=== PATIENT | female | born 1955 | race Caucasian/White ===

== ENCOUNTER → 2016-07-22 | Outpatient (CLI) | payer BC, OTHER | END | disposition home or self-care (01) | LOC: CFH 14:22 | PROVIDERS: ATTEND Internal Medicine Nephrology | DX: I12.9 Hypertensive chronic kidney disease with stage 1 through stage 4 chronic kidney disease, or unspecified chronic kidney disease (principal); N18.3 Chronic kidney disease, stage 3 (moderate) | CPT/HCPCS: 76770 ==

== ENCOUNTER 2020-08-15 08:27 | Inpatient (IN) | payer BC, MEDICARE ==
[~2020-08-15] VITALS: Ht 167.6 cm; Wt 77.9 kg
[~2020-08-15 08:27] MED LIST: BACITRACIN 50,000 UNIT ONE; BUPIVACAINE/PF 0.5% ONE; EPINEPHRINE 1 MG/ML, 1ML ONE
[2020-08-15 09:34] VITALS: BP 150/92
[2020-08-15] MEDS ORDERED: LEVO75TA5 PO (09:42)
[2020-08-15] MEDS ORDERED: LISI-167 PO (09:42)
[2020-08-15] MEDS ORDERED: CHLORHEXIDINE 15 ML UDC ONE (09:54)
[2020-08-15] MEDS ORDERED: LACTATED RINGERS 1,000 ML IV SCH (10:00)
[2020-08-15] MEDS ORDERED: CHLORHEXIDINE 15 ML UDC PO ONE (10:00)
[2020-08-15] MEDS ORDERED: PLEASE ENTER ALLERGIES MC SCH (10:30)
[2020-08-15] MEDS ORDERED: FENTANYL PF 100 MCG/2ML ONE ×6 (10:34→14:31)
[2020-08-15] MEDS ORDERED: MIDAZOLAM 1 MG/ML, 2ML ONE (10:34)
[2020-08-15] MEDS ORDERED: CEFAZOLIN 1,000 MG ONE (10:36)
[2020-08-15] MEDS ORDERED: ROCURONIUM 10MG/ML,5ML ONE (10:36)
[2020-08-15] MEDS ORDERED: PROPOFOL 10 MG/ML, 20ML ONE (10:37)
[2020-08-15] MEDS ORDERED: PROPOFOL 100 ML ONE (10:37)
[2020-08-15] MEDS ORDERED: GLYCOPYRROLATE 0.2MG/1ML, 5ML ONE (10:37)
[2020-08-15] MEDS ORDERED: NEOSTIGMINE 1 MG/ML, 10ML ONE (10:37)
[2020-08-15] MEDS ORDERED: SUCCINYLCHOLINE 20 MG/ML, 10ML ONE (10:37)
[2020-08-15] MEDS ORDERED: ONDANSETRON 2MG/ML, 2ML ONE (10:37)
[2020-08-15] MEDS ORDERED: DEXAMETHASONE 4 MG/ML, 1ML ONE (10:37)
[2020-08-15] MEDS ORDERED: PROMETHAZINE 25 MG/ML, 1ML IVPush PRN (12:30)
[2020-08-15] MEDS ORDERED: HYDROmorphone 1 MG/ML, 1ML INJ IVPush PRN (12:30)
[2020-08-15] MEDS ORDERED: morphine SULFATE 10 MG/ML, 1ML IVPush PRN ×2 (12:30→14:30)
[2020-08-15] MEDS ORDERED: OXYcodone 5 MG/5 ML ORAL.SOL UDC PO PRN (12:30)
[2020-08-15] MEDS ORDERED: ACETAMINOPHEN 325 MG TABLET PO PRN (12:30)
[2020-08-15] MEDS ORDERED: MEPERIDINE/PF 25MG/0.5ML IVPush PRN (12:30)
[2020-08-15] MEDS ORDERED: HALOPERIDOL 5 MG/ML IV PRN (12:30)
[2020-08-15] MEDS ORDERED: LABETALOL 5MG/ML, 20ML IV PRN (12:30)
[2020-08-15] MEDS ORDERED: hydrALAzine 20 MG/ML, 1ML IV PRN (12:30)
[2020-08-15] MEDS: FENTANYL PF 100 MCG/2ML IV PRN ×2 (14:20→14:32)
[2020-08-15] MEDS ORDERED: METHOCARBAMOL 750 MG TABLET PO PRN (14:30)
[2020-08-15] MEDS ORDERED: DIPHENHYDRAMINE 50 MG/ML, 1ML IM PRN (14:30)
[2020-08-15] MEDS ORDERED: PHARMACY MAY ADJ FOR RENAL FX MC PRN (14:30)
[2020-08-15] MEDS ORDERED: ONDANSETRON 2MG/ML, 2ML IVPush PRN (14:30)
[2020-08-15] MEDS ORDERED: DIPHENHYDRAMINE 50 MG CAPSULE PO PRN (14:30)
[2020-08-15] MEDS ORDERED: MAGNESIUM HYDROXIDE 8%, 30ML UDC PO PRN (14:30)
[2020-08-15] MEDS ORDERED: SENNA/DOCUSATE TABLET PO PRN (14:30)
[2020-08-15] MEDS ORDERED: OXYcodone/APAP 5/325MG TABLET PO PRN (14:30)
[2020-08-15] MEDS ORDERED: CYCLOBENZAPRINE 10 MG TABLET PO PRN (14:30)
[2020-08-15] MEDS ORDERED: PROMETHAZINE 25 MG/ML, 1ML IM PRN (14:30)
[2020-08-15] MEDS ORDERED: METHOCARBAMOL 1,000 MG in DEXTROSE 5% 100 ML IV ONE (14:30)
[2020-08-15] MEDS ORDERED: LABETALOL 5MG/ML, 20ML IVPush PRN (14:30)
[2020-08-15] MEDS ORDERED: HYDROcodone/APAP 10/325 MG TABLET PO PRN (14:30)
[2020-08-15] MEDS ORDERED: OXYcodone 5 MG/5 ML ORAL.SOL UDC ONE (14:31)
[2020-08-15] MEDS: NS + 20MEQ KCL 1,000 ML IV SCH (17:02)
[2020-08-15 19:22] VITALS: BP 120/73
[2020-08-15] MEDS: CEFAZOLIN PMX 1GM/50ML 50 ML IVPB SCH (20:32)
[2020-08-15] MEDS: SODIUM CHLORIDE FLUSH 10ML SYR IVF SCH (20:32)
[2020-08-15] MEDS: HYDROcodone/APAP 5/325 TABLET PO PRN (20:39)
[2020-08-16 00:06] VITALS: BP 105/62
[2020-08-16] MEDS: NS + 20MEQ KCL 1,000 ML IV SCH (02:00)
[2020-08-16] MEDS: CEFAZOLIN PMX 1GM/50ML 50 ML IVPB SCH (04:16)
[2020-08-16 04:25] VITALS: BP 101/68
[2020-08-16] MEDS ORDERED: LEVOTHYROXINE 75 MCG TABLET PO SCH (06:00)
[2020-08-16 06:55] VITALS: BP 112/70
[2020-08-16] MEDS: HYDROcodone/APAP 5/325 TABLET PO PRN (07:52)
[2020-08-16] MEDS: SODIUM CHLORIDE FLUSH 10ML SYR IVF SCH (07:53)
[2020-08-16] MEDS ORDERED: MAALOX/HYOSCYAMINE/LIDOCAINE 45 ML BTL PO ONE (08:00)
[2020-08-16] MEDS ORDERED: DOCU-131 PO (08:29)
[2020-08-16] MEDS ORDERED: HYDR-2214 PO (08:29)
[2020-08-16] MEDS ORDERED: CEPH500T PO (08:29)
[2020-08-16] MEDS ORDERED: METH-640 PO (08:29)
[2020-08-16] MEDS ORDERED: LISINOPRIL 10 MG TABLET PO SCH (09:00)
[2020-08-16 09:24] VITALS: BP 118/66
[2020-08-16] MEDS ORDERED: ONDANSETRON 4 MG TABLET ONE (09:33)
[2020-08-16] MEDS ORDERED: ONDANSETRON ODT 4 MG PO ONE (10:00)
== END 2020-08-16 10:05 | disposition home or self-care (01) | DRG 472 ==
LOC: ORIP 08:27 → 4NE 15:17 → DCLOUNGE 08-16 09:58
PROVIDERS: ADMIT Neurological Surgery; ATTEND Neurological Surgery
PROC: 0RB30ZZ Excision of Cervical Vertebral Disc, Open Approach (ICD-10-PCS; 2020-08-15)
PROC: 0RG20A0 Fusion of 2 or more Cervical Vertebral Joints with Interbody Fusion Device, Anterior Approach, Anterior Column, Open Approach (ICD-10-PCS; principal; 2020-08-15 12:00)
DX: M48.02 Spinal stenosis, cervical region (principal); G95.29 Other cord compression; M50.322 Other cervical disc degeneration at C5-C6 level; M50.323 Other cervical disc degeneration at C6-C7 level; R13.10 Dysphagia, unspecified; R49.0 Dysphonia
CPT/HCPCS: 36415; 72040; S0020; 86850; 86900; 95938; 95941; C1713; G0378; J0171; J0690; J1100; J2250; J2405; J2704; J2710; J3010; J3480; Q0162; C1762; C1889; J0330; J2800; J7120